=== PATIENT | female | born 1990 | race Caucasian/White ===

== ENCOUNTER 2021-10-12 17:11 | Emergency (ER) | payer OTHER ==
[~2021-10-12] VITALS: Ht 157.5 cm; Wt 81.6 kg
[2021-10-12 17:11] VITALS: BP_SYST 108
--- NOTE | 2021-10-12 17:16 | NUR ---
Patient triaged and placed in waiting room. VSS and patient appears in no acute distress at this time. Accompanied by FAMILY, awaiting available bed, and MD notified of need for MSE.
--- NOTE | 2021-10-12 17:22 | NUR ---
PT STATES LEFT SIDED CHEST AND SHOULDER PAIN/NUMBNESS RADIATING DOWN LEFT ARM. DENIES ANY INJURY OR TRAUMA.
--- NOTE | 2021-10-12 17:47 | NUR ---
DR CHUNG OUT TO WAITING ROOM TO EVALUATE PT.
[2021-10-12] MEDS ORDERED: IBUP-1969 PO (18:17)
--- NOTE | 2021-10-12 18:20 | NUR ---
Patient given written and verbal discharge instructions and verbalizes understanding. ER MD discussed with patient the results and treatment provided. Patient in stable condition. Rx of IBUPROFEN given. Patient educated on pain management and to follow up with PMD. Pain Scale 0/10 Opportunity for questions provided and answered. Medication side effect fact sheet provided.
== END 2021-10-12 18:20 | disposition home or self-care (01) ==
LOC: SED 17:11
DX: R07.89 Other chest pain (principal); M54.12 Radiculopathy, cervical region
CPT/HCPCS: 71045; 93005; 99283